=== PATIENT | female | born 1955 | race Two or more races ===

== ENCOUNTER 2023-10-05 07:56 | Day surgery (SDC) | payer OTHER ==
[~2023-10-05] VITALS: Ht 152.4 cm; Wt 63.5 kg
[2023-10-05] MEDS ORDERED: MIDAZOLAM HCL 5 MG/5 ML VIAL ONE (09:38)
[2023-10-05] MEDS ORDERED: fentaNYL CITRATE/PF 100 MCG/2 ML AMP ONE (09:38)
[2023-10-05] MEDS ORDERED: DIPHENHYDRAMINE INJ 50 MG/ML VIAL ONE (09:48)
[2023-10-05 12:16] VITALS: O2SAT 99
[2023-10-05 16:28] VITALS: BP_SYST 132; PULSE 57; RESP 17
== END 2023-10-05 11:35 | disposition home or self-care (01) ==
LOC: SDS 07:56 → SMU 07:59 → SDS 11:35
PROVIDERS: ATTEND Internal Medicine
DX: R10.11 Right upper quadrant pain (principal); K29.50 Unspecified chronic gastritis without bleeding; R13.10 Dysphagia, unspecified; F41.9 Anxiety disorder, unspecified; Z80.0 Family history of malignant neoplasm of digestive organs; Z88.6 Allergy status to analgesic agent; Z79.899 Other long term (current) drug therapy
CPT/HCPCS: 43239; 87081; 36415; 88305; 88312; 88313; G0378; J1200; J2250; J3010